=== PATIENT | male | born 1995 | race Caucasian/White ===

== ENCOUNTER 2018-07-13 14:16 | Emergency (ER) | payer OTHER ==
[~2018-07-13] VITALS: Ht 167.6 cm; Wt 95.2 kg
[~2018-07-13 14:16] MED LIST: ALBU90OI INH; PRED10 PO
[2018-07-13] MEDS ORDERED: IBUP800 PO (15:36)
== END 2018-07-13 15:58 | disposition home or self-care (01) ==
LOC: ER 14:16
DX: S40.012A Contusion of left shoulder, initial encounter (principal); S20.212A Contusion of left front wall of thorax, initial encounter; V89.2XXA Person injured in unspecified motor-vehicle accident, traffic, initial encounter
CPT/HCPCS: 71101; 73030; 99283-25

== ENCOUNTER → 2023-08-24 | Outpatient (CLI) | payer OTHER ==
[~2023-08-24] MED LIST changes: +IBUP800 PO
[2023-08-25 15:32] LABS: HEPATITIS B SURFACE ANTIBODY <3.10 IU/L
[2023-08-25 15:49] LABS: HEPATITIS B SURFACE ANTIGEN Negative (Negative)
[2023-08-25 16:28] LABS: HBV CORE ANTIBODIES,TOTAL Negative (Negative)
[2023-08-25 17:00] LABS: HIV 1,2 COMBO ANTIGEN/ANTIBODY Negative (Negative)
[2023-08-25 17:01] LABS: HEPATITIS C AB CIA INTERP Negative (Negative); HEPATITIS C ANTIBODY CIA INDEX 0.14 IV
== END | disposition home or self-care (01) ==
LOC: LAB SHORT 16:29
PROVIDERS: Physician Assistant
DX: Z77.21 Contact with and (suspected) exposure to potentially hazardous body fluids (principal)
CPT/HCPCS: 84460